=== PATIENT | male | born 1970 | race Caucasian/White ===

== ENCOUNTER 2019-06-14 09:09 | Emergency (ER) | payer OTHER ==
[2019-06-14 09:57] VITALS: BP 131/74
[2019-06-14 10:17] LABS: Influenza A Molecular NEGATIVE (Negative); Influenza B Molecular NEGATIVE (Negative)
--- NOTE | 2019-06-14 10:40 | UC ---
FLU HPI - HPI Summary HPI Summary: P t presents with c/o body aches, fever and chills X 2 days. Pt also c/o mild St, occasional cough and fever. Pt reports that he has been bit by many ticks in the past and recently removed 3 before they bit him . He was out hunting over the weekend. - History of Current Complaint Chief Complaint: UCGeneralIllness Stated Complaint: FEVER BODYACHES SORE THROAT Time Seen by Provider: 06/14/19 10:00 Hx Obtained From: Patient Onset/Duration: Sudden Onset, Lasting Days, Still Present Severity Currently: Moderate Severity Initially: Moderate Pain Intensity: 5 Associated Signs & Symptoms: Positive: Fever, Myalgia, Cough - occasional, Sore Throat, Nasal Congestion Related Hx: Possible Flu/Infectious Exposure - Risk Factors Influenza Risk Factors: Negative - Allergy/Home Medications Allergies/Adverse Reactions: Allergies Allergy/AdvReac Type Severity Reaction Status Date / Time No Known Allergies Allergy Verified 06/14/19 09:53 Home Medications: Home Medications Acetaminophen [Tylenol Extra Strength] 500 mg PO ONCE 06/14/19 [History Confirmed 06/14/19] PMH/Surg Hx/FS Hx/Imm Hx Previously Healthy: Yes - Surgical History Surgical History: None - Family History Known Family History: Positive: Cardiac Disease - Social History Occupation: Employed Full-time Lives: With Family Alcohol Use: Occasionally Substance Use Type: None Smoking Status (MU): Never Smoked Tobacco Have You Smoked in the Last Year: No Review of Systems All Other Systems Reviewed And Are Negative: Yes Constitutional: Positive: Fever, Chills, Fatigue Skin: Positive: Negative Eyes: Positive: Negative ENT: Positive: Sore Throat Respiratory: Positive: Cough Cardiovascular: Positive: Negative Gastrointestinal: Positive: Negative Genitourinary: Positive: Negative Motor: Positive: Negative Neurovascular: Positive: Negative Musculoskeletal: Positive: Myalgia Neurological: Positive: Headache Psychological: Positive: Negative Is Patient Immunocompromised?: No Physical Exam Triage Information Reviewed: Yes Appearance: Ill-Appearing Vital Signs: Initial Vital Signs Temp 100.5 F 06/14/19 09:51 Pulse 110 06/14/19 09:51 Resp 16 06/14/19 09:51 BP 131/74 06/14/19 09:51 Pulse Ox 96 06/14/19 09:51 Vital Signs Reviewed: Yes Eye Exam: Normal ENT: Positive: Nasal congestion Dental Exam: Normal Neck exam: Normal Respiratory: Positive: Normal breath sounds Cardiovascular Exam: Normal Musculoskeletal Exam: Normal Neurological Exam: Normal Psychological Exam: Normal Skin Exam: Normal Flu Course/Dx - Course Course Of Treatment: I discussed with the pt the results of flu and strep results. I also asked about respiratory symptoms and pt denies any significant c/o sob, wheezing or cough. I discussed my concern for pneumonia and pt verbalized understanding and agreed to plan of care. Pt stated that he did not have cough or SOB - Differential Dx/Diagnosis Differential Diagnosis/HQI/PQRI: Influenza, Pneumonia, Upper Respiratory Infection Provider Diagnosis: Viral syndrome, Fever and chills Discharge ED - Sign-Out/Discharge Documenting (check all that apply): Patient Departure All imaging exams completed and their final reports reviewed: No Studies - Discharge Plan Condition: Stable Disposition: HOME Patient Education Materials: Fever in Adults (ED), Viral Syndrome (ED) Referrals: Norm Traylor MD [Primary Care Provider] - If Needed Additional Instructions: Please follow up with your PCP as soon as possible. - Billing Disposition and Condition Condition: STABLE Disposition: Home
== END 2019-06-14 10:51 | disposition home or self-care (01) ==
LOC: UCCORT 09:09
DX: B34.9 Viral infection, unspecified (principal); R50.9 Fever, unspecified; M79.10 Myalgia, unspecified site; R05 Cough; J02.9 Acute pharyngitis, unspecified
CPT/HCPCS: 36415; 86618; 87651; 99201; G0463